=== PATIENT | female | born 1980 | race Caucasian/White ===

== ENCOUNTER → 2017-10-31 | Outpatient (CLI) | payer BC ==
[~2017-10-31] MED LIST: BIOT1CAP3; SERT1TAB68 PO; VITAMIN C
--- NOTE | 2017-10-31 17:31 | DIAGNOSTIC IMAGING REPORT ---
MRI OF THE LEFT SHOULDER WITHOUT CONTRAST CLINICAL HISTORY: Left shoulder pain. Evaluate for rotator cuff tear. COMPARISON STUDY: No previous studies for comparison. FINDINGS: Alignment of the left shoulder is anatomic. There is no marrow edema. No fracture or marrow replacement is present. Glenoid labrum is intact on this nonarthrogram exam. Proximal long head of the biceps tendon is intact. Note is made of a high grade partial-thickness supraspinatus tear that measures 1.5 cm in AP extent and is located 1.6 cm proximal to the tendon insertion. A small full-thickness component is suspected. A partial thickness tear of the anterior fibers of infraspinatus is also noted. Subscapularis and teres minor are intact. There is no tendon retraction or muscular atrophy. No mass or fluid collection shown adjacent to the left shoulder. IMPRESSION: High grade partial-thickness tear of distal supraspinatus with suspected small full-thickness component. Partial thickness tear of the anterior fibers of distal infraspinatus. No tendon retraction or muscular atrophy. Electronically signed by: Alf Lewis M.D. 10/31/2017 5:29 PM Dictated Date/Time: 10/31/2017 5:01 PM
== END | disposition home or self-care (01) ==
LOC: C.MRIBC 15:43
PROVIDERS: ATTEND Orthopaedic Surgery
DX: M75.112 Incomplete rotator cuff tear or rupture of left shoulder, not specified as traumatic (principal)

== ENCOUNTER → 2017-12-25 | Day surgery (SDC) | payer BC ==
[2017-12-24 11:41] VITALS: Ht 172.7 cm; Wt 67.7 kg
[~2017-12-25] VITALS: Ht 172.7 cm; Wt 67.7 kg
[~2017-12-25] MED LIST changes: +ATROPINE SULFATE 0.1 MG/ML 5ML SYR IV PRN; -BIOT1CAP3; +BIOT1CAP8 PO; +BUPIVACAINE/EPINEPHRINE 0.25% 1:200,000 30 ML VIAL ONE; +CLINDAMYCIN 600MG IV SCH; +CYAN100020 PO; +DEXAMETHASONE SOD INJ 4 MG/ML VIAL ONE; +EpHEDrine SULFATE INJ 50 MG/ML AMP IV PRN; +EpINEphrine INJ 1MG/ML AMP 1 MG/ML AMP ONE; +FENTANYL CITRATE INJ 50 MCG/1 ML 2 ML VIAL IV PRN; +FENTANYL CITRATE INJ 50 MCG/1 ML 2 ML VIAL ONE; +HYDR-5688 PO; +HYDROmorphone INJ 1 MG/ML SYR IV PRN; +LIDOCAINE HCL 2% 2 ML VIAL (20MG/ML) ONE; +METHYLPREDNISOLONE ACETATE 80 MG/ML VIAL ONE; +MIDAZOLAM HCL 1 MG/ML 2ML VIAL ONE; +MULT-506 PO; +NURSING VERBAL MED ORDER ONE; +ONDANSETRON INJ 2 MG/ML 2 ML VIAL IV PRN; +ONDANSETRON INJ 2 MG/ML 2 ML VIAL ONE; +OXYCODONE/ACETAMINOPHEN 5-325 TAB PO PRN; +PROPOFOL IV EMULSION 10 MG/ML 20 ML VIAL IV ONE; +ROPIVACAINE 0.5% 5 MG/ML 30 ML VIAL ONE; -SERT1TAB68 PO; +SODIUM CHLORIDE 0.9% 1000ML 1,000 ML IV SCH; +VITAMIN B12 INJ; -VITAMIN C
--- NOTE | 2017-12-25 08:02 | History & Physical Bridge - SC ---
H&P Re-Evaluation Bridge Note: I have examined the patient, reviewed the History & Physical and in the interval since the performance of the History & Physical I have noted the following changes of clinical significance: No changes noted
--- NOTE | 2017-12-25 09:56 | [facility] Post Operative Brief Note ---
Immediate Operative Summary Operative Date Dec 25, 2017. Pre-Operative Diagnosis Left Shoulder Biceps Tendonitis Post-Operative Diagnosis Same Procedure(s) Performed Left Shoulder Arthroscopy With Capsular Release Surgeon Dr. Borjas Scroll Machine Operator Surgeon(s) Loulou Gregory PA-C Estimated Blood Loss 5 ml Findings Consistent with Post-Op Diagnosis Specimens None Anesthesia Type General Regional Complication(s) none Disposition Disposition: Recovery Room / PACU
--- NOTE | 2017-12-25 10:04 | Discharge Instructions-SurgCtr ---
Discharge Instructions Date of Service Dec 25, 2017. Visit Reason for Visit: Left Shoulder Biceps Tendinitis, Rotator Cuff Tend Discharge Discharge Diagnosis / Problem: SAME ABOVE Discharge Goals Goal(s): Decrease discomfort, Improve function Activity Recommendations Activity Limitations: as noted below Lifting Limitations: gradually increase as tolerated Exercise/Sports Limitations: gradually increase as tolerated Shower/Bathe: tomorrow Anesthesia . Post Anesthesia Instructions: If you have had General Anesthesia or IV Sedation: * Do not drive today. * Resume driving when surgeon permits. * Do not make important decisions or sign legal documents today. * Call surgeon for: 1. Temperature elevations greater than 101 degrees F. 2. Uncontrollable pain. 3. Excessive bleeding. 4. Persistent nausea and vomiting. 5. Medication intolerance (nausea, vomiting or rash). * For nausea and vomiting use only clear liquids such as: tea, soda, bouillon until nausea subsides, then gradually increase diet as tolerated. * If you have any concerns or questions, call your surgeon's office. If physician is unavailable and it is an emergency, call 911 or go to the nearest emergency room. . Instructions / Follow-Up Instructions / Follow-Up MEDICATIONS: * Resume previous medications unless instructed otherwise by your surgeon. * Always take pain medication on a full stomach or with food to avoid upset stomach. * Do not drink alcohol or drive while taking narcotics. * Ibuprofen or Tylenol may be taken if narcotic not needed. SPECIAL CARE INSTRUCTIONS: __ None _X_ Keep extremity elevated and iced x 48 hours; apply ice 20-30 minutes 8-10 times/day. May remove at night. _X_ Sling (REMOVE AFTER 24 HOURS) __24 hrs/day __ Remove at night __ Shoulder Immobilizer __ 24 hrs/day __ Remove at night _X_ Dressing __ Maintain until seen in office, may shower with plastic over site _X_ Remove dressings in 24-48 hours and then may shower _X_ Cover incisions with band-aids after showering __ Do not remove steri-strips Call physician if chills or temperature rises above 102 degrees or pain unrelieved by prescribed pain medications at . . Diet Recommendations Home Diet: no limitations Fluid Restriction: None Procedures Procedures Performed: Left Shoulder Arthroscopy With Capsular Release Pending Studies Studies pending at discharge: no Work Instructions Return To Work: 3 days Medical Emergencies . Who to Call and When: Medical Emergencies: If at any time you feel your situation is an emergency, please call 911 immediately. . Non-Emergent Contact Non-Emergency issues call your: Primary Care Provider Call Non-Emergent contact if: you have a fever, temperature is above 101.5 . . "Provider Documentation" section prepared by Sandro Gregory. .
--- NOTE | 2017-12-25 10:22 | OPERATIVE REPORT ---
DATE OF OPERATION: 12/25/2017 PREOPERATIVE DIAGNOSES: Adhesive capsulitis, possible partial cuff tear of the left shoulder. POSTOPERATIVE DIAGNOSES: Adhesive capsulitis with subacromial bursitis and labral fraying of the left shoulder. PROCEDURE: Left shoulder diagnostic arthroscopy with extensive debridement, lysis of adhesions, acromioplasty and manipulation under anesthesia. SURGEON: Dr. Palmer Borjas. WASH AND GREASER: Aaron Gregory PA-C, whose assistance was necessary for positioning the arm and helping with instrumentation and closure. ANESTHESIA: General with a left interscalene nerve block. COMPLICATIONS: None. CONDITION: Stable to PACU. INDICATIONS: Denis is a pleasant 37-year-old female who has been having a 3-month history of left shoulder pain. She does not recall any traumatic events. MRI showed questionable partial thickness cuff tear. She has had multiple injections by my partners. She is unable to sleep at night. On examination in the office, she had decreased range of motion, especially end range of motion really hurt her. I diagnosed with possible adhesive capsulitis and she elected to undergo arthroscopy. DESCRIPTION OF PROCEDURE: On 12/25/2017, she arrived at [facility] for the above procedure. She was seen in the preoperative holding area and the operative extremity was identified and signed. She was given a preoperative antibiotic and a left interscalene nerve block. She was taken back to the operating room, laid on the table in supine position and put under general anesthesia. She was then put into the beachchair position. The left shoulder was prepped and draped in sterile fashion. Time-out was done and the patient and operative extremity was properly identified. On preoperative physical examination, I adducted her to about 90 degrees and then got a big pop in her shoulder. I was able to get her through a full range of motion. She then had full external and internal rotation. A scope was then placed in the posterior portal. Diagnostic arthroscopy showed some synovitis and scarring of the rotator interval, but the middle and inferior glenohumeral ligaments looked okay. There was significant fraying of the anterior and superior labrum and some displacement of the labrum into the joint. The biceps anchor was intact. The biceps pull biceps tendon went through a normal size biceps brayan mechanism. The supraspinatus, infraspinatus, subscapularis, and teres minor were all checked and completely intact. An anterior portal was made and a shaver and ablator were used to do a lysis of adhesions of the rotator interval and open up the interval to the undersurface of the coracoid. Hemostasis was controlled. A shaver was used to do a debridement of the anterior and superior labrum to remove back the torn labral fragments. The biceps tendon was pulled into the joint and there was no evidence of any biceps pathology. The scope was then put into the subacromial space. A lateral portal was made. A shaver was used to do a complete subacromial and subdeltoid bursectomy. There was a lot of red and inflamed bursa that was removed. An ablator was used to tease the coracoacromial ligament off the undersurface of the acromion and a 5-0 geneva was used to complete an acromioplasty of a Bigliani type 3 acromion. A shaver was used to remove any excess debris and the bursal side of the rotator cuff was examined extensively without evidence of tear. The scope was placed back into the glenohumeral joint. Given the tightness I saw in the rotator interval, I did decide to do a cortisone injection. A spinal needle was placed. Arthroscopic instruments removed from the shoulder. Portal sites were closed with 3-0 nylon. The shoulder was then injected with 80 mg of Depo-Medrol and 5 mL of Marcaine. She was then placed in a soft compressive dressing and regular arm sling. She was then extubated, transferred to a [facility] and taken to the postanesthesia care unit in stable condition. She tolerated the procedure well. I attest to the content of the Intraoperative Record and any orders documented therein. Any exception s are noted below.
--- NOTE | 2017-12-25 11:08 | Anesthesia Progress Nt - [facility] ---
Anesthesia Post Op Note Date & Time Dec 25, 2017 at 11:07 Vital Signs Pain Intensity: 0 Vital Signs Past 12 Hours Date Time Temp Pulse Resp B/P (MAP) Pulse Ox O2 Delivery O2 Flow Rate FiO2 12/25/17 10:50 37.3 122/68 12/25/17 10:47 84 13 12/25/17 10:47 85 13 99 12/25/17 10:46 123/72 12/25/17 10:42 79 0 12/25/17 10:42 79 0 98 12/25/17 10:40 125/63 12/25/17 10:37 76 0 98 12/25/17 10:37 79 0 12/25/17 10:35 123/63 12/25/17 10:32 81 3 99 12/25/17 10:32 81 3 12/25/17 10:31 127/44 12/25/17 10:27 75 15 100 12/25/17 10:27 79 15 12/25/17 10:26 126/67 12/25/17 10:22 74 16 100 12/25/17 10:22 74 16 12/25/17 10:20 131/72 12/25/17 10:17 72 11 100 12/25/17 10:17 74 11 12/25/17 10:15 135/74 12/25/17 10:12 76 16 100 12/25/17 10:12 76 16 12/25/17 10:10 140/76 12/25/17 10:07 90 16 12/25/17 10:07 89 16 85 12/25/17 10:05 148/83 12/25/17 10:04 149/87 12/25/17 10:01 36.8 82 16 149/87 96 Mask 6 12/25/17 09:12 0 12/25/17 09:11 0 12/25/17 09:06 0 12/25/17 09:01 12 12/25/17 08:56 73 12/25/17 08:55 75 15 12/25/17 08:50 81 12/25/17 08:50 80 23 100 12/25/17 08:45 98 12/25/17 08:45 94 35 98 12/25/17 07:32 36.6 84 16 105/67 (80) 99 Room Air Notes Mental Status: alert / awake / arousable, participated in evaluation Pt Amnestic to Procedure: Yes Nausea / Vomiting: adequately controlled Pain: adequately controlled Airway Patency, RR, SpO2: stable & adequate BP & HR: stable & adequate Hydration State: stable & adequate Anesthetic Complications: no major complications apparent
[2017-12-25 11:30] VITALS: BP 107/65; PULSE 84; TEMP 37.1; O2SAT 95
== END | disposition home or self-care (01) ==
LOC: X.SURG 07:15
PROVIDERS: ATTEND Orthopaedic Surgery
DX: M75.01 Adhesive capsulitis of right shoulder (principal); F32.9 Major depressive disorder, single episode, unspecified

== ENCOUNTER 2020-09-07 06:31 | Inpatient (IN) ==
--- NOTE | 2020-08-17 08:36 | PAT Medication Instructions ---
Medication Instructions Date of Service August 17, 2020 Home Medications biotin 1 cap PO QAM calcium carbonate [Calcium 500] 2 tab PO QPM cholecalciferol (vitamin D3) [Vitamin D3] 1,000 unit PO QAM cyanocobalamin (vitamin B-12) 2 tab PO MONTHLY famotidine [Pepcid] 40 mg PO HS PRN magnesium oxide 400 mg PO QDL multivitamin 1 tab PO QAM DO NOT take the morning of surgery biotin 1 cap PO QAM cholecalciferol (vitamin D3) [Vitamin D3] 1,000 unit PO QAM cyanocobalamin (vitamin B-12) 2 tab PO MONTHLY magnesium oxide 400 mg PO QDL multivitamin 1 tab PO QAM Take evening before surgery calcium carbonate [Calcium 500] 2 tab PO QPM famotidine [Pepcid] 40 mg PO HS PRN (if needed) Other Notes If you have any questions please call us at [phone] or [phone] or [phone] or [phone]
--- NOTE | 2020-08-18 08:58 | Anesthesiology Consultation ---
Date of Service August 18, 2020 Assessment & Plan (1) Encounter for pre-operative examination: - Per assessment on 08/18: Travel screen 08/18: No known COVID-19 positive contacts or current COVID-19 related symptoms. Surgeon arranging preop COVID te sting (scheduled 08/28; [facility]). Awaiting results. - Left shoulder arthroscopy: 12/25/17: LMA#4 at [facility] [place] - Hx PONV: Patient states that when pain medication is given post-operatively prior to having food, she will have post-op nausea/vomiting. Scope patch ordered for AM DOS* Chart Review Chart Review: Acceptable Risk for Surgery and Patient seen in Pre Admission Testing Teaching & Discussion Pre-Anesthesia Teaching/Discussion Notes: Instructed NPO after midnight before surgery,except medications with 15 cc of water. Medication instructions provided according to the PAT guidelines. History Surgery Operation Date: 09/01/20 13:25 Proposed Procedures p L5-S1 Decompression Fusion, Spinal Cord Monitoring - Km Loera DO Height/Weight Height: 5 ft 8 in Weight: 72.9 kg Allergies Allergy/AdvReac Type Severity Reaction Status Date / Time cephalexin Allergy Unknown Hives Unverified 08/18/20 09:09 shellfish derived Allergy Unknown Throat/ears Unverified 08/18/20 09:09 itchy, N/V nickel Allergy Skin Verified 08/18/20 09:09 redness NSAIDS (Non-Steroidal AdvReac Unknown Advised to Verified 08/18/20 09:09 Anti-Inflamma avoid d/t hx gastric bypass Medications Home Medications Medication Instructions Recorded Confirmed Last Taken biotin 1 cap PO QAM 03/17/19 08/14/20 Unknown calcium carbonate [Calcium 500] 2 tab PO QPM 03/17/19 08/14/20 Unknown cholecalciferol (vitamin D3) 1,000 unit PO QAM 03/17/19 08/14/20 Unknown [Vitamin D3] cyanocobalamin (vitamin B-12) 2 tab PO MONTHLY 03/17/19 08/14/20 Unknown famotidine [Pepcid] 40 mg PO HS PRN 08/14/20 08/14/20 Unknown magnesium oxide 400 mg PO QDL 08/14/20 08/14/20 Unknown multivitamin 1 tab PO QAM 08/14/20 08/14/20 Unknown Past Medical History Medical History Degenerative disc disease History of depression Migraines Exercise / Class Metabolic Activity II 4-5 Yardwork/Stairs/Walk up hill Past Family History Family History Other No family history of adverse response to anesthesia Past Surgical History Surgical History History of esophagogastroduodenoscopy (EGD) History of knee surgery BL History of shoulder surgery Left shoulder arthroscopy: 12/25/17: LMA#4 at [facility] [place] History of vaginal hysterectomy Hx of cholecystectomy Hx of gastric bypass Hx of tubal ligation Past Anesthesia History No Family Hx of Anesthesia Complications (except mother (PONV)) and Other (awareness with gastric bypass (2015) and cholecystectomy (1995)) History of PONV No Hx of Motion Sickness and History of PONV Social History Smoking Status: Current some day smoker Smoking cigarettes per day: 6-10 cig/day (total tobacco use 15+ years- intermittent) Do You Dip or Chew Tobacco: No Hx Alcohol Use: Yes alcohol intake frequency: holidays/special occasions only Hx Substance Use: No substance use type: does not use Review of Systems Remote hx of palpitations years ago s/p unremarkable holter monitor per patient. + chronic cough d/t post-nasal drip evaluated by PCP- dx allergy related. Patient denies chest pain, shortness of breath, dyspnea on exertion, joint pain, reflux, wheezing. Physical Exam Vital Signs VITALS BP 111/73 P 85 TEMP 98.4 SP02 100%RA RESP 16 PHYSICAL Full neck and c-spine range of motion. Full TMJ range of motion. TMD 3 finger breaths Mallampati Score 1 Dentition: upper left side missing, lower right side broken Lungs: clear throughout to auscultation Cardiac: regular rate and rhythm, no murmurs noted Spine: normal Carotid arteries: negative bruit Extremities: no edema Testing Laboratory Results 08/18/20 09:40 08/18/20 09:40 PT 10.3 Seconds (9.0-12.0) 08/18/20 09:40 INR 1.0 (0.9-1.1) 08/18/20 09:40 APTT 25.6 Seconds (21.0-31.0) 08/18/20 09:40 Urine Color Yellow 08/18/20 09:40 Urine Appearance Clear (Clear) 08/18/20 09:40 Urine pH 8.0 (4.5-7.5) H 08/18/20 09:40 Ur Specific [place] 1.006 (1.000-1.030) 08/18/20 09:40 Urine Protein Negative (Negative) 08/18/20 09:40 Urine Glucose (UA) Negative (Negative) 08/18/20 09:40 Urine Ketones Negative (Negative) 08/18/20 09:40 Urine Nitrite Negative (Negative) 08/18/20 09:40 Ur Leukocyte Esterase Negative (Negative) 08/18/20 09:40 Blood Type A Positive 08/18/20 09:40 Antibody Screen NEGATIVE 08/18/20 09:40 Echocardiogram Date: 12/20/16 LVEF 55-59%. No RWMA. Mild TR.
[2020-08-18 10:14] LABS: Appearance Urine Clear (Clear); Bilirubin Urine Negative (Negative); Blood Urine Negative (Negative); Color Urine Yellow; Glucose Urine UA Negative (Negative); Ketones Urine Negative (Negative); Leukocyte Esterase Urine Negative (Negative); Nitrite Urine Negative (Negative); Protein Urine Negative (Negative); Specific Gravity Urine 1.006 (1.000-1.030); Urobilinogen Urine Negative (Negative)
[2020-08-18 10:17] LABS: Basophils # (auto) 0.03 K/uL (0-0.2); Basophils % (auto) 0.6 %; Hematocrit (blood only) 36.5 % (37-47); Hemoglobin 12.3 g/dL (12.0-16.0); Immature Granulocytes # (auto) 0.01 K/uL (0.00-0.02); Immature Granulocytes % (auto) 0.2 %; Lymphocytes % (auto) 33.5 %; Mean Corpuscular Hemoglobin 30.9 pg (25-34); Mean Corpuscular Hgb Conc 33.7 g/dL (32-36); Mean Corpuscular Volume 91.7 fL (80-100); Mean Platelet Volume 8.9 fL (7.4-10.4); Monocytes # (auto) 0.33 K/uL (0.11-0.59); Monocytes % (auto) 6.5 %; Neutrophils # (auto) 2.91 K/uL (1.4-6.5); Neutrophils % (auto) 57.2 %; Platelet Count 247 K/uL (130-400); RDW Coefficient of Variation 12.5 % (11.5-14.5); RDW Standard Deviation 42.6 fL (36.4-46.3); Red Blood Count 3.98 M/uL (4.2-5.4); White Blood Count 5.08 K/uL (4.8-10.8)
[2020-08-18 10:26] LABS: Partial Thromboplastin Ratio 0.9; Partial Thromboplastin Time 25.6 Seconds (21.0-31.0); Prothrombin Time 10.3 Seconds (9.0-12.0)
[2020-08-18 12:52] LABS: BUN Creatinine Ratio 15.6 (10-20); Calcium 9.2 mg/dl (8.5-10.1); Creatinine Clr Calc Pharmacy 100.9 ml/min; Est GFR (African American) 116.6; Est GFR (Non-African American) 100.6; Potassium 3.7 mmol/L (3.5-5.1)
[~2020-09-07 06:31] MED LIST changes: +ACETAMINOPHEN 500 MG TAB PO SCH; -ATROPINE SULFATE 0.1 MG/ML 5ML SYR IV PRN; -BIOT1CAP8 PO; -BUPIVACAINE/EPINEPHRINE 0.25% 1:200,000 30 ML VIAL ONE; +CLINDAMYCIN 600 MG/54 ML BAG IV SCH; -CLINDAMYCIN 600MG IV SCH; -CYAN100020 PO; +CeleBREX 200 MG CAP PO SCH; -DEXAMETHASONE SOD INJ 4 MG/ML VIAL ONE; -EpHEDrine SULFATE INJ 50 MG/ML AMP IV PRN; -EpINEphrine INJ 1MG/ML AMP 1 MG/ML AMP ONE; -FENTANYL CITRATE INJ 50 MCG/1 ML 2 ML VIAL IV PRN; -FENTANYL CITRATE INJ 50 MCG/1 ML 2 ML VIAL ONE; +GABAPENTIN 900 MG DOSE PO SCH; -HYDR-5688 PO; -HYDROmorphone INJ 1 MG/ML SYR IV PRN; -LIDOCAINE HCL 2% 2 ML VIAL (20MG/ML) ONE; +LR 15ML/HR IV SCH; -METHYLPREDNISOLONE ACETATE 80 MG/ML VIAL ONE; -MIDAZOLAM HCL 1 MG/ML 2ML VIAL ONE; -MULT-506 PO; -NURSING VERBAL MED ORDER ONE; -ONDANSETRON INJ 2 MG/ML 2 ML VIAL IV PRN; -ONDANSETRON INJ 2 MG/ML 2 ML VIAL ONE; -OXYCODONE/ACETAMINOPHEN 5-325 TAB PO PRN; -PROPOFOL IV EMULSION 10 MG/ML 20 ML VIAL IV ONE; -ROPIVACAINE 0.5% 5 MG/ML 30 ML VIAL ONE; -SODIUM CHLORIDE 0.9% 1000ML 1,000 ML IV SCH; +Scopolamine CHECK PATCH PLACEMENT SCH; -VITAMIN B12 INJ; +ceFAZolin 1000MG 1,000 MG/7.5 ML SYR IV SCH
[2020-09-07] MEDS ORDERED: BACITRACIN INJ 50,000 UNIT VIAL ONE (07:02)
[2020-09-07] MEDS ORDERED: BUPIVACAINE/EPINEPHRINE 0.25% 1:200,000 30 ML VIAL ONE (07:02)
[2020-09-07] MEDS ORDERED: SCOPOLAMINE 1.5 MG TDSY TD ONE (07:19)
[2020-09-07] MEDS ORDERED: fentaNYL citrate 100 MCG/2 ML VIAL ONE ×2 (07:22→08:48)
[2020-09-07] MEDS ORDERED: PROPOFOL IV EMULSION 10 MG/ML 20 ML VIAL IV ONE (07:22)
[2020-09-07] MEDS ORDERED: ONDANSETRON INJ 2 MG/ML 2 ML VIAL ONE (07:22)
[2020-09-07] MEDS ORDERED: NEOSTIGMINE METHYLSULFATE 1 MG/ML 10ML VIAL ONE (07:22)
[2020-09-07] MEDS ORDERED: MIDAZOLAM HCL 1 MG/ML 2ML VIAL ONE (07:22)
[2020-09-07] MEDS ORDERED: GLYCOPYRROLATE 0.2 MG/ML VIAL ONE (07:22)
[2020-09-07] MEDS ORDERED: ROCURONIUM BROMIDE 10 MG/ML 5 ML VIAL IV ONE (07:22)
[2020-09-07] MEDS ORDERED: DEXAMETHASONE SOD INJ 4 MG/ML VIAL ONE (07:22)
[2020-09-07] MEDS ORDERED: LIDOCAINE HCL 2% 2 ML VIAL/AMP(20MG/ML) INFIL ONE (07:22)
--- NOTE | 2020-09-07 07:27 | History & Physical Bridge Note ---
Date of Service September 07, 2020 History & Physical Bridge Note I have examined the patient, reviewed the History & Physical and in the interval since the performance of the History & Physical I have noted the following changes of clinical significance: no changes noted
--- NOTE | 2020-09-07 07:28 | History & Physical Report ---
Date of Service September 07, 2020 Assessment & Plan (1) Neurogenic claudication due to lumbar spinal stenosis: Admission and Anticipated Discharge Date Admission Date: L5-S1 decompression fusion History of Present Illness Chief Complaint: Chronic persistent back and bilateral leg pain Primary Care Provider: Jose Petty MD This is a 40-year-old female well-known to us that presents with chronic persistent back and leg pain. Failing course of nonoperative care is here for surgical intervention. Allergies Allergy/AdvReac Type Severity Reaction Status Date / Time cephalexin Allergy Unknown Hives Unverified 09/07/20 06:51 shellfish derived Allergy Unknown Throat/ears Unverified 09/07/20 06:51 itchy, N/V nickel Allergy Skin Verified 09/07/20 06:51 redness NSAIDS (Non-Steroidal AdvReac Unknown Advised to Verified 09/07/20 06:51 Anti-Inflamma avoid d/t hx gastric bypass Home Medications Home Medications Medication Instructions Recorded Confirmed Type biotin 1 cap PO QAM 03/17/19 09/07/20 History calcium carbonate [Calcium 500] 2 tab PO QPM 03/17/19 09/07/20 History cholecalciferol (vitamin D3) 1,000 unit PO QAM 03/17/19 09/07/20 History [Vitamin D3] cyanocobalamin (vitamin B-12) 2 tab PO MONTHLY 03/17/19 09/07/20 History famotidine [Pepcid] 40 mg PO HS PRN 08/14/20 09/07/20 History magnesium oxide 400 mg PO QDL 08/14/20 09/07/20 History multivitamin 1 tab PO QAM 08/14/20 09/07/20 History Past Med/Surg History Medical History Degenerative disc disease History of depression Migraines Surgical History History of esophagogastroduodenoscopy (EGD) History of knee surgery BL History of shoulder surgery [place]rosc[place]: 12/25/17[place] [facility] [place] of vaginal hysterectomy Hx of cholecystectomy Hx of gastric bypass Hx of tubal ligation Family History Other No family history of adverse response to anesthesia Social History Smoking Status: Current some day smoker Cigarettes Per Day: 6-10 cig/day (total tobacco use 15+ years- intermittent); Second Hand Exposure: Yes ( smoked and parents smoked); Do You Dip or Chew Tobacco: No; Tobacco Cessation Education Requested by Patient: No Hx Alcohol Use: Yes Hx Substance Use: No Preferred Language: [place] Communication Ability: Effective Sales Teacher Required: No Beliefs That Will Affect Care: None marital status: Current Living Situation: Spouse and Significant Other current occupational status: employed Feels Safe at Home: Yes Safety Concerns: Feels Safe At This Time Assistive Devices: Contacts and Glasses Physical Exam Physical Exam: Patient is alert and oriented Lungs clear to auscultation Heart regular rate and rhythm Results & Data ([facility] [place]) Vital Signs (Past 12 Hours) Vital Signs Temp Pulse Resp BP Pulse Ox 09/07/20 06:55 36.7 C 87 18 109/73 100
[2020-09-07] MEDS ORDERED: fentaNYL citrate 100 MCG/2 ML VIAL IV PRN (07:31)
[2020-09-07] MEDS ORDERED: ATROPINE SULFATE 0.1 MG/ML 10ML SYR IV PRN (07:31)
[2020-09-07] MEDS ORDERED: ePHEDrine sulfate 50 MG/ML AMP IV PRN (07:31)
[2020-09-07] MEDS ORDERED: ONDANSETRON INJ 2 MG/ML 2 ML VIAL IV PRN ×2 (07:31→10:52)
[2020-09-07] MEDS ORDERED: PROMETHAZINE HCL 6.25 MG in SODIUM CHLORIDE 0.9% 50 ML IV PRN (07:31)
[2020-09-07] MEDS ORDERED: CLINDAMYCIN 600 MG/54 ML D5W IV ONE (07:32)
[2020-09-07] MEDS ORDERED: PHENYLEPHRINE 100MCG/ML 5ML SYR ONE (09:12)
[2020-09-07] MEDS ORDERED: ePHEDrine sulfate 50 MG/ML AMP ONE (09:12)
[2020-09-07] MEDS ORDERED: FLOSEAL HEMOSTATIC MATRIX 10ML TOP ONE (09:18)
--- NOTE | 2020-09-07 09:22 | Operative Report ---
Post Operative Report Pre & Post Diagnosis Operation Date: 09/07/20 07:45 Pre-Op Diagnosis: Neurogenic claudication due to lumbar spinal stenosis L5-S1 Post-Op Diagnosis: Neurogenic claudication due to lumbar spinal stenosis L5-S1 I identified the patient and participated in the time-out.: Yes Procedure Operation Date: 09/07/20 07:45 Actual Procedures #1 lumbar decompression with bilateral medial facetectomies and foraminotomies L5-S1. #2 posterior spinal fusion L5-S1. #3 placement posterior instrumentation of S1. Before interbody fusion L5-S1. #5 placed a peek cage 10 x 26 mm L5-S1. #6 placement of locally harvested morselized autograft in the posterior lateral gutters. #7 placement infuse collagen sponge master graft and posterior gutters and osteopenic body space. Surgeon Km Loera DO Deputy Of Counter Intelligence Laura Prieto Estimated Blood Loss 50 Findings Consistent with Post-Op Diagnosis Specimens None Indications This is a 40-year-old female well-known to me the presents with above-mentioned diagnosis after failing course of nonoperative care is here for the above- mentioned procedure. Description of Procedure Patient was met with identified informed consent obtained. Patient was then taken to the operative suite underwent an patient placed in a prone position injectable top Dameon frame. All bony prominences well-padded eyes inspected to ensure no external pressure placed upon up at this point the lumbar spine was prepped and draped in normal sterile fashion. Sharp dissection with assistance pericardial was performed down to expose the lamina and transverse processes of L5 and sacral ala bilaterally. From caudal cephalad fashion complete laminec navi of L5 was performed including bilateral medial facetectomies and foraminotomies addressing any neural compression. Pedicle screws were then placed in L5 and S1 levels bilaterally with assistance of fluoroscopy and the proper sized keaton placed. Believe a transforaminal approach on the right a complete discectomy of 5 S1 was performed endplates curetted to subcortical bleeding bone and a 10 x 26 mm peek cage filled with osteobone graft tapped in position. The rods were then locked into final position bilaterally. The transverse processes of L5 and sacral ala burred to subcortical bleeding bone. Infuse collagen sponge master graft local autograft was placed in the posterior gutters. 15 round KARL drain inserted. The incision was then closed with 1 Vicryl to fascia 2-0 Vicryl subcutaneously and 4 Monocryl for final skin closure. Steri-Strip sterile dressings placed. Patient will continue PACU stable condition. Please note spinal cord monitoring was utilized at the procedure no changes noted. Svetlana Prieto was present at the entire surgery involved in patient positioning complex portions of the surgery and final skin closure. I attest to the content of the Intraoperative Record and any orders documented therein. Any exceptions are noted below.
[2020-09-07] MEDS: HYDROmorphone INJ 2 MG/ML SYR/VIAL IV PRN ×3 (10:05→10:21)
--- NOTE | 2020-09-07 10:06 | Fluoroscopy Report ---
FL lumbar spine 2-3V HISTORY: 40 years-old Female L5-S1 DECOMP/FUSION COMPARISON: CT abdomen and pelvis 03/17/2019 TECHNIQUE: 2 spot fluoroscopic images of the lumbar spine were obtained utilizing 28.4 seconds fluoro scopy time FINDINGS: Discectomy with posterior interbody keaton and screw fusion at L5-S1. The hardware appears intact. Satis factory alignment. No unexpected retained foreign body. IMPRESSION: Fluoroscopic assistance as above. Please see operative report for further details. ACT 112: Negative or not required by law. The above report was generated using voice recognition software. It may contain grammatical, syntax o r spelling errors. Electronically signed by: Aiden Medina M.D. 09/07/2020 10:05 AM
--- NOTE | 2020-09-07 10:46 | Anesthesiology Progress Note ---
Date of Service September 07, 2020 Anesthesia Post Procedure Vital Signs Vital Signs: Temp Pulse Pulse Resp BP Pulse Ox 09/07/20 10:35 75 14 106/53 L 100 09/07/20 10:25 36.3 C L 56 L 14 112/56 L 98 09/07/20 10:15 57 L 14 104/54 L 98 09/07/20 10:05 69 14 117/66 94 09/07/20 09:55 74 14 119/67 99 09/07/20 09:45 66 12 127/71 100 09/07/20 09:36 36.5 C 91 H 16 141/80 H 99 09/07/20 06:55 36.7 C 87 18 109/73 100 Pain Intensity Back: Pain Intensity: 3 Transfer of Care Handoff Completed per policy Notes Mental Status: alert / awake / arousable Patient Amnestic to Procedure: Yes Nausea / Vomiting: adequately controlled Pain: adequately controlled Airway Patency, RR, SpO2: stable & adequate BP & HR: stable & adequate Hydration State: stable & adequate Anesthetic Complications: no major complications apparent
[2020-09-07] MEDS ORDERED: METOCLOPRAMIDE HCL INJ 5 MG/ML 2 ML VIAL IV PRN (10:52)
[2020-09-07] MEDS ORDERED: FAMOTIDINE 40 MG TABLET PO PRN (10:52)
[2020-09-07] MEDS ORDERED: LORazepam 0.5 MG TAB PO PRN (10:52)
[2020-09-07] MEDS ORDERED: bisacodyL 10 MG SUPP PR PRN (10:52)
[2020-09-07] MEDS ORDERED: NALOXONE HCL 0.4 MG/1 ML VIAL/CARP IV PRN (10:52)
[2020-09-07] MEDS ORDERED: HYDROmorphone INJ 0.5 MG/0.5 ML SYR IV PRN (10:52)
[2020-09-07] MEDS ORDERED: FAMOTIDINE 20 MG TAB PO PRN (10:52)
[2020-09-07] MEDS ORDERED: DO NOT ADMINISTER PNEUMOCOCCAL VACCINE PRN (10:52)
[2020-09-07] MEDS ORDERED: oxyCODONE HCL IR 5 MG TAB (IMMEDIATE RELEASE) PO PRN (10:52)
[2020-09-07] MEDS ORDERED: MAGNESIUM HYDROXIDE SUSP 30 ML UDC PO PRN (10:52)
[2020-09-07] MEDS ORDERED: SOD PHOSPHATE/SOD BIPHOSPHATE ENEMA 132 ML BTL PR PRN (10:52)
[2020-09-07] MEDS ORDERED: ACETAMINOPHEN 1,000 MG/100 ML VIAL IV PRN (10:52)
[2020-09-07] MEDS ORDERED: PROMETHAZINE HCL 12.5 MG in SODIUM CHLORIDE 0.9% 50 ML IV PRN (10:52)
[2020-09-07] MEDS ORDERED: DO NOT ADMINISTER FLU VACCINE PRN (10:52)
[2020-09-07] MEDS ORDERED: hydrOXYzine HCl 25 MG TAB PO PRN (10:52)
[2020-09-07] MEDS ORDERED: diphenhydrAMINE Capsule 25 MG CAP PO PRN (10:52)
[2020-09-07] MEDS ORDERED: LORazepam 0.5 MG/1 ML VIAL IV PRN (10:52)
[2020-09-07] MEDS ORDERED: ONDANSETRON 4 MG OD TAB PO PRN (10:52)
[2020-09-07] MEDS ORDERED: CYANOCOBALAMIN PO SCH (10:52)
[2020-09-07] MEDS ORDERED: ALUMINUM/MAGNESIUM SUSP 30 ML UDC PO PRN (10:52)
[2020-09-07] MEDS ORDERED: HYDROmorphone INJ 1 MG/ML SYRINGE IV PRN (10:52)
[2020-09-07] MEDS ORDERED: ACETAMINOPHEN 500 MG TAB PO PRN (10:52)
[2020-09-07] MEDS: MAGNESIUM OXIDE 400 MG TAB PO SCH (12:30)
[2020-09-07] MEDS: LACTATED RINGER'S 1,000 ML IV SCH ×2 (13:50→21:53)
[2020-09-07] MEDS: KETOROLAC TROMETHAMINE 15 MG/ML VIAL IV SCH ×2 (15:06→20:08)
[2020-09-07] MEDS: Scopolamine CHECK PATCH PLACEMENT SCH ×2 (15:49→23:36)
[2020-09-07] MEDS: CLINDAMYCIN 600 MG in DEXTROSE 5% 50 ML IV SCH ×2 (15:50→23:36)
[2020-09-07] MEDS: traMADol HCL 50 MG TABLET PO PRN (15:52)
[2020-09-07] MEDS: CALCIUM CARBONATE 500 MG CHEWABLE TAB PO SCH (20:09)
[2020-09-07] MEDS ORDERED: NON-FORMULARY PATIENT'S OWN MED PO SCH (21:00)
[2020-09-07] MEDS: DOCUSATE SODIUM/SENNA 50/8.6MG TAB PO SCH (21:51)
[2020-09-07] MEDS: ZYRTEC D PO SCH (21:51)
[2020-09-07] MEDS ORDERED: COUGH DROP (SUGAR FREE) LOZ 24 LOZ/1 BOX BUCCAL PRN (23:41)
[2020-09-08] MEDS: KETOROLAC TROMETHAMINE 15 MG/ML VIAL IV SCH ×2 (01:48→08:46)
[2020-09-08] MEDS: POLYETHYLENE (MIRALAX) 17 GM PACK PO SCH ×4 (05:27→23:33)
[2020-09-08 06:32] LABS: Basophils # (auto) 0.02 K/uL (0-0.2); Basophils % (auto) 0.3 %; Eosinophils # (auto) 0.04 K/uL (0-0.5); Eosinophils % (auto) 0.6 %; Hematocrit (blood only) 30.9 % (37-47); Hemoglobin 10.4 g/dL (12.0-16.0); Lymphocytes # (auto) 2.19 K/uL (1.2-3.4); Lymphocytes % (auto) 31.6 %; Mean Corpuscular Hgb Conc 33.7 g/dL (32-36); Mean Platelet Volume 8.5 fL (7.4-10.4); Monocytes # (auto) 0.47 K/uL (0.11-0.59); Monocytes % (auto) 6.8 %; Neutrophils # (auto) 4.22 K/uL (1.4-6.5); Neutrophils % (auto) 60.7 %; Platelet Count 228 K/uL (130-400); RDW Coefficient of Variation 12.5 % (11.5-14.5); RDW Standard Deviation 42.2 fL (36.4-46.3); Red Blood Count 3.36 M/uL (4.2-5.4); White Blood Count 6.94 K/uL (4.8-10.8)
[2020-09-08 07:04] LABS: BUN Creatinine Ratio 12.5 (10-20); Creatinine Clr Calc Pharmacy 98.3 ml/min; Est GFR (African American) 112.9; Est GFR (Non-African American) 97.4; Potassium 3.9 mmol/L (3.5-5.1)
[2020-09-08] MEDS: MULTIVITAMIN TAB PO SCH (08:46)
[2020-09-08] MEDS: CHOLECALCIFEROL 1,000 UNITS 25 MCG TAB PO SCH (08:46)
[2020-09-08] MEDS: Scopolamine CHECK PATCH PLACEMENT SCH ×3 (08:46→23:33)
[2020-09-08] MEDS ORDERED: NON-FORMULARY MEDICATION (Biotin 1 CAP) PO SCH (09:00)
--- NOTE | 2020-09-08 09:34 | Orthopedic Progress Note ---
Date of Service September 08, 2020 Assessment & Plan (1) Neurogenic claudication due to lumbar spinal stenosis: Admission and Anticipated Discharge Date Admission Date: September 07, 2020 At this time we will continue physical therapy monitor KARL output anticipate di scharge home tomorrow. Subjective Back pain controlled no leg pain. Physical Exam Physical Exam: Patient is in the chair at the bedside. She is comfortable. Is good strength testing. Results & Data ([facility]) Vital Signs (Past 12 Hours) Vital Signs Temp Pulse Resp BP BP Pulse Ox 09/08/20 06:55 36.8 C 77 16 91/57 L 100 09/08/20 03:08 37.0 C 72 20 94/55 L 97 09/07/20 23:59 36.9 C 61 16 96/58 L 98
[2020-09-08] MEDS: MAGNESIUM OXIDE 400 MG TAB PO SCH (12:13)
[2020-09-08] MEDS: DOCUSATE SODIUM/SENNA 50/8.6MG TAB PO SCH (20:09)
[2020-09-08] MEDS: CALCIUM CARBONATE 500 MG CHEWABLE TAB PO SCH (20:09)
[2020-09-08] MEDS: ZYRTEC D PO SCH (20:09)
[2020-09-08] MEDS: traMADol HCL 50 MG TABLET PO PRN (20:19)
[2020-09-09] MEDS: POLYETHYLENE (MIRALAX) 17 GM PACK PO SCH (05:37)
--- NOTE | 2020-09-09 08:06 | Discharge Summary ---
Date of Service September 09, 2020 Admission HPI Per Admitting Provider This is a 40-year-old female well-known to us that presents with chronic persistent back and leg pain. Failing course of nonoperative care is here for surgical intervention. Admission Exam (Per Admitting) Constitutional WD/WN, vitals as above Eyes normal visual dupont by confrontation ENMT external ear and nose normal, oropharynx normal Neck normal visual inspection Respiratory normal respiratory effort Cardiovascular Extremities: normal capillary refill Chest (Breasts) Chest: normal inspection of chest Gastrointestinal (Abdomen) Inspection/Auscultation: abdomen normal to inspection and + abdominal surgical scar Musculoskeletal no cyanosis or clubbing, extremities motor strength 5/5 Extremities: extremities normal to inspection Skin no rashes, warm and dry Neurologic normal touch/pain/proprioception and moves all extremities Psychiatric A+Ox3, euthymic affect Discharge Data Consultations 09/07/20 10:52 Consult Case Management - Discharge Planning Routine Procedures Performed Operation Date: 09/07/20 07:45 Actual Procedures p L5-S1 Decompression Fusion, Spinal Cord Monitoring(Not Applicable) - Km Loera DO Hospital Course (1) Neurogenic claudication due to lumbar spinal stenosis: Patient has had an uneventful postoperative course. She is being discharged home on postoperative day 2. Lab values have been stable. She is making great progress in physical therapy. Pain is well controlled. Discharge Instructions ACTIVITY RECOMMENDATIONS: SELF CARE INSTRUCTIONS AFTER THORACIC/LUMBAR FUSIONS 1. You may walk to your tolerance. It is good exercise for your legs and back. Expect some back and intermittent leg aches and pains. 2. You may perform "counter-top" level activities (make a sandwich, samara with a project, etc.). 3. No bending or lifting of more than 10 pounds or back twisting of any nature (roll like a log when turning in bed). 4. You may ride in a car for 20-30 minutes at a time. No driving until after your first visit with your doctor. 5. Frequent changes of position and restricting sitting to 30 minutes at a time will help limit the amount of back spasms and stiffness you may experience. 6. You may discontinue the use of ambulatory aids (cane, crutches, etc.) once your strength and confidence allow. 7. You may information technology architect the shower and let water strike your incision when you arrive home at least once daily. Do not take a tub bath, sit in a hot tub or go into a swimming pool until after your first recheck in the office. SPECIAL CARE INSTRUCTIONS: VERY IMPORTANT TO READ AND REVIEW A. Your surgical incision has been closed with a cosmetic suture under the skin that will dissolve in about 6 weeks. In 14 days, you can use a pair of clean scissors and cut the suture that is left outside of the skin at the ends of your incision. 1. The small skin tapes can be removed 7 days after surgery if they have not fallen off by that point. 2. You may keep the wound open to air as much as possible to promote healing after post-op day number 5 unless told otherwise by your doctor. 3. If you think the wound looks like it is becoming infected (redness or worsening drainage) and/or you are experiencing fever, chill or worsening back pain and muscle spasms, contact the office so that we may evaluate you as soon as possible. B. Complications are uncommon, but please contact us if you have any signs or symptoms of: 1. wound infection (fever higher than 102.5 degrees F, redness, separation of wound, drainage, or increasing pain from the incision) 2. blood clots in legs (pain, swelling, redness and warmth in legs) 3. urinary tract infection (fever higher than 102.5 degrees F, burning upon urination or increased frequency of urination) 4. nerve problems (inability to walk on your toes or heels, numbness, loss of bowel or bladder control) 5. any other symptoms that concern you C. Please call the office at if you have any concerns or questions about your operation or recovery. D. No smoking! Smoking drastically decreases the chance of a solid fusion. E. Do not take any anti-inflammatory medications (Indocin, Advil, Motrin, Aspirin, Naprosyn, etc.) as these may inhibit the chance of a solid fusion. Tylenol is okay to take for pain. MANAGING PAIN AFTER SPINAL SURGERY 1. Narcotic medication is intended for short-term use and will be provided for surgical pain. Surgical pain usually lasts for a period of 4-6 weeks. Narcotic medication includes Percocet, Vicodin, Darvocet, Tylenol #3 or Lortab. 2. Longer-term pain is more appropriately treated with non-narcotic medication such as Tylenol ES. 3. Muscle spasm is not appropriately treated with narcotics. Muscle relaxers such as Soma, Flexeril or Skelaxin can be used along with Tylenol ES. 4. Remember that we all live with some "aches and pains". This is not unusual or uncommon after an injury or as we get older. a. Back pain is expected and may include muscle spasms for 4 to 6 weeks after surgery. The pain should gradually improve. If the pain worsens for no apparent reason, please contact the office. b. Intermittent leg pain may also be experienced and should not be concerned about unless it worsens for no apparent reason. If so, please contact the office. 5. We will provide appropriate medication within the normal guidelines of their prescribed use. We will also be very cautious and aware of potential abuse and extended duration of patients' medication needs. a. Pain medications are for your comfort and to assist with sleep and rest so that the tissue can heal. They are not provided in order to return to normal activity and should not be used through the day. To do so or worsening pain at night can result from ongoing tissue damage and development of tolerance to the prescribed medicine. 6. Please allow 2-3 days to process refills. Prescriptions will not be mailed but must be picked up at the office. FOLLOW UP VISIT: Keep your scheduled follow-up appointment. Any questions, please call the office at . Supervising Physician Co-Signing Physician Notes Dr. Km Loera
[2020-09-09] MEDS: Scopolamine CHECK PATCH PLACEMENT SCH (08:46)
[2020-09-09] MEDS: MULTIVITAMIN TAB PO SCH (08:46)
[2020-09-09] MEDS: CHOLECALCIFEROL 1,000 UNITS 25 MCG TAB PO SCH (08:46)
[2020-09-09] MEDS ORDERED: DEXAMETHASONE SOD PHOSPHATE 8 MG in SYRINGE 0 ML IV SCH (09:00)
== END 2020-09-09 11:00 | disposition home or self-care (01) | DRG 455 ==
LOC: ASU 06:31 → 3E 09:42